=== PATIENT | female | born 1955 | race Caucasian/White ===

== ENCOUNTER 2017-12-04 14:35 | Outpatient (CLI) | payer BC | END 2017-12-04 14:36 | disposition home or self-care (01) | LOC: BICRAD 14:35 | PROVIDERS: ATTEND Family Medicine | DX: R07.9 Chest pain, unspecified (principal); I70.90 Unspecified atherosclerosis | CPT/HCPCS: 71046 ==

== ENCOUNTER 2017-12-04 15:01 | Outpatient (CLI) | payer BC | END 2017-12-04 15:02 | disposition home or self-care (01) | LOC: BICMAMMO 15:01 | PROVIDERS: ATTEND Family Medicine | DX: Z12.31 Encounter for screening mammogram for malignant neoplasm of breast (principal) | CPT/HCPCS: 77063; 77067 ==

== ENCOUNTER 2018-10-07 13:08 | Outpatient (CLI) | payer BC ==
--- NOTE | 2018-10-07 14:55 | RAD ---
TWO VIEWS CHEST: Comparison: 12-04-17 History: Pneumonia. FINDINGS: Two views of the chest shows a normal sized cardiomediastinal silhouette with atherosclerotic calcifi cations in the aorta. There is no evidence of consolidation, mass, or pleural effusions. Degenerative changes are seen in the spine. IMPRESSION: 1. No evidence of acute cardiopulmonary disease. 2. Atherosclerotic disease. POS: [facility]
== END 2018-10-07 13:09 | disposition home or self-care (01) ==
LOC: BICRAD 13:08
PROVIDERS: ATTEND Allergy & Immunology
DX: J18.9 Pneumonia, unspecified organism (principal); I70.0 Atherosclerosis of aorta
CPT/HCPCS: 71046